=== PATIENT | female | born 1970 | race Caucasian/White ===

== ENCOUNTER 2024-02-17 18:54 | Emergency (ER) | payer OTHER, SELFPAY ==
[2024-02-17 19:25] VITALS: BP 175/109; PULSE 95; TEMP 37; O2SAT 96; BMI 60.5
--- NOTE | 2024-02-17 19:41 | XR_ITS ---
The [address] [address] Patient Name: SOLEDAD RENDON MRN: [id number] date: 1970 Sex: F Assigned Patient Location: ER Current Patient Location: Accession/Order Number: [id number] Exam Date: 02/17/2024 19:49 Report Date: 02/17/2024 20:57 At the request of: CAR HERNANDEZ Procedure: XR knee RT 3V EXAM: XR knee RT 3V HISTORY: pain. COMPARISON: None. TECHNIQUE: 3 views right knee FINDINGS: Moderate tricompartmental degenerative changes most severe at the patellofemoral articulation. Moderate joint effusion. No acute osseous abnormality. Well-corticated osseous density lateral to the lateral femoral condyle may reflect sequelae of remote avulsion injury. XR/XR knee RT 3V IMPRESSION: Moderate tricompartmental degenerative change without acute osseous abnormality. Electronically authenticated by: NICOLA BOLAND Date: 02/17/2024 20:57
--- NOTE | 2024-02-17 20:16 | PC.NURSE ---
right knee pain, NKI
--- NOTE | 2024-02-17 20:18 | ED.LOWEXI1 ---
HPI HPI - Extremity Injury (Lower) General Chief Complaint: Extremity Injury, Lower Stated Complaint: KNEE PAIN, UNABLE TO WALK Time Seen by Provider: 02/17/24 20:02 Source: patient Mode of arrival: Wheelchair Limitations: no limitations History of Present Illness HPI Narrative: 53-year-old female presents to the ER with concerns of progressive right knee pain. Patient denies focal injury, states she was sick with upper respiratory illness approximately a month ago, recovered well, noticed gradual onset of pain medial knee that has worsened throughout the week. Patient reports limited weightbearing, works at home remote. Patient notes pain with certain motions in the knee. She denies any fevers or chills. Patient lives in a one-story home by herself with her dog and has 2 grown children present at bedside. Injury: Right: knee Place: Reports home Severity: moderate Relieving factors: Reports nothing Exacerbating factors: Reports weight bearing and movement Context: Reports fall and direct blow Associated symptoms: Denies swelling or numbness Other symptoms: Denies loss of consciousness Related Data Previous Rx's ?Medication ?Instructions ?Recorded prednisone 20 mg tablet 40 mg (2 x 20 mg) PO DAILY 5 days 02/17/24 #10 tabs Allergies Allergy/AdvReac Type Severity Reaction Status Date / Time No Known Drug Allergies Allergy Verified 02/17/24 19:31 Opioid HPI Opioid Management Most Recent Pain and Opioid Data: No Data to Display Review of Systems ROS Constitutional Denies: fever or chills Ears, nose, mouth, and throat Denies: throat pain, neck pain or throat swelling Cardiovascular Denies: chest pain or palpitations Respiratory Denies: shortness of breath or cough Gastrointestinal Denies: abdominal pain or nausea Musculoskeletal Reports: back pain (Few weeks ago, resolved.); Denies: neck pain Integumentary/Breast Denies: rash Neurological Denies: headache Psychiatric Denies: anxiety Exam Narrative Exam Narrative: Vital signs reviewed and nurse's notes. The patient is not hypoxic. General: Alert, no acute distress, patient resting comfortably Skin: warm, intact, no pallor noted Head: Normocephalic, atraumatic Eye: Normal conjunctiva, no exudates Respiratory: No acute distress, lungs CTA Musculoskeletal: No evidence of deformity to the right knee. There is mild amount of swelling. There is no ecchymosis. No erythema or warmth noted. DP and PT pulses are intact 2+. Normal sensation, normal capillary refill less than 2 seconds. There is no cyanosis or mottling noted. The patient has tenderness to medial joint line of the right knee. The patient has no laxity with varus or valgus stressing. no pain with stressing MCL. The patient has negative anterior drawer and Maureen testing. The patient was able to flex and extend although with pain. Patient was able to extend leg off the cart without difficulty. No tenderness noted to the 5th MT, midfoot, ankle or proximal fibular area. There is no pain with calcaneal squeeze, achilles tendon is intact and no defect is palpated. The patient has no pelvic instability. The patient has no shortening or rotation noted to the bilateral lower extremities. Edema , chronic and dependent in both legs. Neurological: alert and orient x4, normal sensory and motor observed. Psychiatric: Cooperative Constitutional Vital Signs, click to edit/add: Last Vital Signs Temp 98.6 F 02/17/24 19:25 Pulse 95 H 02/17/24 19:25 Resp 16 02/17/24 19:25 BP 175/109 H 02/17/24 19:25 Pulse Ox 96 02/17/24 19:25 O2 Del Method Room Air 02/17/24 19:25 Course Vital Signs Vital signs: Vital Signs Temperature 98.6 F 02/17/24 19:25 Pulse Rate 95 H 02/17/24 19:25 Respiratory Rate 16 02/17/24 19:25 Blood Pressure 175/109 H 02/17/24 19:25 Pulse Oximetry 96 02/17/24 19:25 Oxygen Delivery Method Room Air 02/17/24 19:25 Temperature 98.6 F 02/17/24 19:25 Pulse Rate 95 H 02/17/24 19:25 Respiratory Rate 16 02/17/24 19:25 Blood Pressure 175/109 H 02/17/24 19:25 Pulse Oximetry 96 02/17/24 19:25 Oxygen Delivery Method Room Air 02/17/24 19:25 MDM - Extremity Injury (Lower) MDM Narrative Medical decision making narrative: Reviewed x-ray performed here at bedside, patient has notable patellofemoral arthritis and osteophytes medial lateral joint line, painless passive range of motion with range of motion near full. Localized pain to the medial joint line. Mostly present with weightbearing. Recommend orthopedic follow-up, no clinical exams for concern of infection. We discussed a Toradol shot IM for inflammation, Le wrap applied neurovascular intact status post application and a short prescription of prednisone for inflammation. Patient will return to the ER symptoms worsen or new symptoms develop. She is able to weight-bear with minimal difficulty at the bedside. The patient is to followup with primary care physician in next 2-3 days or to return to the emergency department should any of the signs or symptoms worsen or new symptoms develop. Patient had questions answered. The patient agrees with the following Diagnosis and Treatment plan and the patient will be discharged home. Discharge Plan Discharge Stand Alone Forms: Portal Instructions Chief Complaint: Extremity Injury, Lower Clinical Impression: Acute pain of left knee, Arthritis of left knee Patient Disposition: Home, Self-Care Time of Disposition Decision: 20:19 Condition: Good Prescriptions / Home Meds: New prednisone 20 mg tablet 40 mg PO DAILY 5 Days Qty: 10 0RF Print Language: Yakut Instructions: Knee Pain (ED) Referrals: Emma Johnson [Primary Care Provider] - 1 week Stephen Hess MD [Physician] - 1 week
[2024-02-17] MEDS: KETOROLAC TROMETHAMINE 60 MG/2 ML VIAL IM (20:22)
[2024-02-17] MEDS: ACETAMINOPHEN 500 MG TABLET 1000 MG PO (20:26)
== END 2024-02-17 20:29 | disposition home or self-care (01) ==
PROVIDERS: Emergency Provider Emergency Medicine; PCP Nurse Practitioner Family
DX: M25.562 Pain in left knee (principal); M17.12 Unilateral primary osteoarthritis, left knee
CPT/HCPCS: 73562; 96372; 99284